=== PATIENT | female | born 1960 | race African-American/Black ===

== ENCOUNTER → 2017-06-05 | Outpatient (CLI) | payer OTHER ==
--- NOTE | 2017-06-05 11:51 | WOMENS IMAGING REPORT ---
EXAM DESCRIPTION: U/S ABDOMEN LIMITED COMPLETED DATE/TIME: 06/05/2017 10:33 am REASON FOR STUDY: CHRONIC VIRAL HEPATITIS; B18.2 B18.2 CHRONIC VIRAL HEPATITIS C F10.20 ALCOHOL DE PENDENCE, UNCOMPLICATED COMPARISON: None. TECHNIQUE: Dynamic and static grayscale images acquired of the abdomen and recorded on PACS. Additio nal selected color Doppler and spectral images recorded. LIMITATIONS: None. FINDINGS: PANCREAS: Normal. The tail was obscured gas. LIVER: 16.7 cm. Slightly increased echogenicity. LIVER VASCULATURE: Normal directional flow of the main portal vein and hepatic veins. GALLBLADDER: No stones. Normal wall thickness. No pericholecystic fluid. ULTRASOUND-DETECTED PAGAN'S SIGN: Negative. INTRAHEPATIC DUCTS AND COMMON DUCT: CBD and intrahepatic ducts normal caliber. No filling defects. INFERIOR VENA CAVA: Normal flow. AORTA: No aneurysm. The distal abdominal aorta was obscured by gas. RIGHT KIDNEY: Normal size, 11 x 4.2 x 4.6 cm. Normal echogenicity. No solid or suspicious masses. No hydronephrosis. No calcifications. PERITONEAL AND RIGHT PLEURAL SPACE: No ascites or effusions. OTHER: No other significant findings. IMPRESSION: There is mild fatty infiltration of the liver. TECHNICAL DOCUMENTATION: JOB ID: [id number] [employer]- All Rights Reserved
== END ==
LOC: WI 10:40
PROVIDERS: ATTEND Internal Medicine Gastroenterology
DX: B18.2 Chronic viral hepatitis C (principal); F10.20 Alcohol dependence, uncomplicated
CPT/HCPCS: 76705

== ENCOUNTER 2018-06-27 10:33 | Emergency (ER) | payer OTHER ==
[2018-06-27] MEDS ORDERED: ONDANSETRON HCL INJ/PF 4 MG/2 ML SDV IV ONE (11:31)
[2018-06-27] MEDS ORDERED: MORPHINE SULFATE 10 MG/ML INJ IV ONE (11:31)
--- NOTE | 2018-06-27 11:41 | ER Document Report ---
ED General - General Chief Complaint: Shoulder Pain Stated Complaint: LEFT SHOULDER PAIN Time Seen by Provider: 06/27/18 11:16 Mode of Arrival: Ambulatory Information source: Patient, Friend Notes: 58-year-old female with hypertension presents with complaints of left arm pain that started 1 week prior to arrival. Patient states that she fell asleep on her stomach with her arms over her head when she woke up the next morning with extreme aching throbbing pain that radiated down her left arm and into her left upper chest. Patient states the pain is constant, worse with movement. She denies any prior history of injury. She does state that she has been nauseous with this pain, diaphoretic. She denies any chest pain but admits to shortness of breath although she does have a history of COPD and currently still smokes. Patient has tried Motrin without relief. She denies any fever, chills, abdominal pain, back pain, dysuria, hematuria, cough. TRAVEL OUTSIDE OF THE [place] IN LAST 30 DAYS: No - HPI Onset: Last week Onset/Duration: Gradual, Persistent, Worse Quality of pain: Throbbing Severity: Moderate Associated symptoms: Nausea, Shortness of breath, Sweating Exacerbated by: Movement Relieved by: Denies Similar symptoms previously: No Recently seen / treated by doctor: No - Related Data Allergies/Adverse Reactions: No Known Allergies Allergy (Verified 06/27/18 10:38) Past Medical History - General Information source: Patient, [facility] Records - Social History Smoking Status: Current Every Day Smoker Cigarette use (# per day): Yes - 5 Smoking Education Provided: Yes - Smoking cessation counseling was provided for 4 minutes at the bedside Frequency of alcohol use: Occasional Drug Abuse: None Lives with: Family Family History: Reviewed & Not Pertinent Patient has suicidal ideation: No Patient has homicidal ideation: No - Past Medical History Cardiac Medical History: Reports: Hx Hypertension Denies: Hx Heart Attack Pulmonary Medical History: Denies: Hx Asthma Neurological Medical History: Denies: Hx Cerebrovascular Accident, Hx Seizures GI Medical History: Reports: Hx Ulcer. Denies: Hx Hepatitis, Hx Hiatal Hernia Infectious Medical History: Denies: Hx Hepatitis Past Surgical History: Reports: Hx Hysterectomy. Denies: Hx Mastectomy, Hx Open Heart Surgery, Hx Pacemaker - Immunizations Hx Diphtheria, Pertussis, Tetanus Vaccination: Yes Review of Systems - Review of Systems Constitutional: denies: Fever, Recent illness EENT: denies: Throat pain Cardiovascular: denies: Chest pain, Dizziness Respiratory: Short of breath. denies: Cough, Hurts to breathe Gastrointestinal: Nausea. denies: Vomiting Genitourinary: denies: Dysuria, Flank pain Female Genitourinary: No symptoms reported Musculoskeletal: Joint pain, Muscle stiffness. denies: Back pain, Joint swelling Skin: denies: Rash Hematologic/Lymphatic: denies: Swollen glands Neurological/Psychological: denies: Weakness, Headaches -: Yes All other systems reviewed and negative Physical Exam - Vital signs Vitals: Temp Pulse Resp BP Pulse Ox 98.6 F 87 20 165/87 H 98 06/27/18 10:45 06/27/18 10:45 06/27/18 10:45 06/27/18 10:45 06/27/18 10:45 Interpretation: Hypertensive - Notes Notes: PHYSICAL EXAMINATION: GENERAL: Well-appearing, well-nourished and in no acute distress. HEAD: Atraumatic, normocephalic. EYES: Pupils equal round and reactive to light, extraocular movements intact, conjunctiva are normal. ENT: Nares patent, oropharynx clear without exudates. Moist mucous membranes. NECK: Normal range of motion, supple without lymphadenopathy LUNGS: Breath sounds clear to auscultation bilaterally and equal. No wheezes rales or rhonchi. HEART: Regular rate and rhythm without murmurs ABDOMEN: Soft, nontender, nondistended abdomen. No guarding, no rebound. No masses appreciated. Female : deferred Musculoskeletal: Normal range of motion, no pitting or edema. No cyanosis. Right shoulder-sensation intact, no obvious deformity, full range of motion although painful. Radial pulse intact. No neuro deficits. NEUROLOGICAL: Cranial nerves grossly intact. Normal speech, normal gait. Normal sensory, motor exams PSYCH: Normal mood, normal affect. SKIN: Warm, Dry, normal turgor, no rashes or lesions noted. Course - Re-evaluation Re-evalutation: 06/27/18 20:23 Laboratory 06/27/18 06/27/18 06/27/18 11:38 11:38 11:38 WBC 5.7 RBC 3.74 Hgb 13.2 Hct 37.9 MCV 101 H MCH 35.1 H MCHC 34.7 RDW 13.1 Plt Count 88 L Seg Neutrophils % 37.2 L Lymphocytes % 50.8 H Monocytes % 10.1 Eosinophils % 1.2 Basophils % 0.7 Absolute Neutrophils 2.1 Absolute Lymphocytes 2.9 Absolute Monocytes 0.6 Absolute Eosinophils 0.1 Absolute Basophils 0.0 Sodium 141.0 Potassium 4.2 Chloride 106 Carbon Dioxide 25 Anion Gap 10 BUN 8 Creatinine 0.55 Est GFR ( Amer) > 60 Est GFR (Non-Af Amer) > 60 Glucose 119 H Calcium 9.1 Total Bilirubin 2.7 H Direct Bilirubin 0.7 H Neonat Total Bilirubin Not Reportable Neonat Direct Bilirubin Not Reportable Neonat Indirect Bili Not Reportable AST 222 H ALT 184 H Alkaline Phosphatase 281 H Troponin I < 0.012 Total Protein 9.6 H Albumin 4.2 Shoulder X-Ray 06/27/18 11:29 IMPRESSION: No acute fracture or malalignment. Chest X-Ray 06/27/18 11:30 IMPRESSION: NO ACUTE RADIOGRAPHIC FINDING IN THE CHEST. 06/27/18 20:23 58-year-old female with hypertension presents with complaints of left arm pain that started 1 week prior to arrival. Patient states that she fell asleep on her stomach with her arms over her head when she woke up the next morning with extreme aching throbbing pain that radiated down her left arm and into her left upper chest. Patient states the pain is constant, worse with movement. Upon arrival vital signs were reviewed. Patient does not appear toxic or dehydrated. She does appear to be uncomfortable. Upon arrival EKG was obtained which showed the patient to be in normal sinus rhythm at a rate of 83. No ST elevation, QTc prolongation. CBC is without leukocytosis or anemia. Troponin negative. No significant electrolyte abnormalities but patient was found to have elevated liver enzymes. She was questioned and denies any abdominal pain, history of alcohol abuse, history of IV drug use, hepatitis. I did inform her of her elevated lab values and recommended that she follow-up with her primary care physician and 2-3 weeks for repeat laboratory testing. X- rays of the left shoulder and chest were obtained and showed no acute process. Patient did receive [place] during her ED course. On reevaluation she reports great improvement of pain. Patient was evaluated and treated as appropriate for the patient's presenting symptoms and complaint, with consideration of any critical or life threatening conditions that may be associated with their obtained history and exam as noted above. All results were discussed with patient and she expresses understanding of follow-up with her primary care physician for repeat liver enzymes. Patient provided the opportunity to ask questions, and express concerns. Patient was educated on treatments based on their presumed diagnosis as noted above. At this time we will discharge the patient with return precautions and follow-up recommendations. Verbal discharge instructions given a the bedside. Medication warnings reviewed. HEART Score: History-0 ECG-0 Age-1 Risk Factors-1 Troponin Total: 2 If HEART score is = 3 AND both troponin measurements are normal, the 30 day risk of a major adverse cardiac event (all-cause mortality, myocardial infarction or need for coronary revascularization) is < 1% (Sensitivity 100%, NPV 100%). Chest pain in a patient without evidence of cardiac or other serious etiology on workup today. I discussed with patient that, based on their age, risk factors and emergency department testing today, the likelihood that their symptoms are related to a heart attack is very low (estimated risk of heart attack or over the next 30 days of less than 1%). The patient demonstrates decision making capacity and has verbalized an understanding of these risks to me. Based on this, the patient has chosen to follow-up as an outpatient. Usual chest pain return precautions reviewed. The patient states understanding and agreement with this plan. After careful consideration I feel that that patient can be safely discharged from the emergency department, they were advised to followup with a primary care physician in 2-3 days. Dictation on this chart was performed using voice recognition software and may result in unintended grammatical, spelling, syntax or errors. 06/27/18 20:24 06/27/18 20:24 - Vital Signs Vital signs: Temp Pulse Resp BP Pulse Ox 98.6 F 70 16 136/80 H 94 06/27/18 10:45 06/27/18 14:16 06/27/18 14:16 06/27/18 14:16 06/27/18 14:16 - Laboratory Result Diagrams: 06/27/18 11:38 06/27/18 11:38 Laboratory results interpreted by me: 06/27/18 06/27/18 11:38 11:38 MCV 101 H MCH 35.1 H Plt Count 88 L Seg Neutrophils % 37.2 L Lymphocytes % 50.8 H Glucose 119 H Total Bilirubin 2.7 H Direct Bilirubin 0.7 H AST 222 H ALT 184 H Alkaline Phosphatase 281 H Total Protein 9.6 H - Diagnostic Test Radiology reviewed: Image reviewed, Reports reviewed Discharge - Discharge Clinical Impression: Elevated liver enzymes, Elevated blood pressure reading Left shoulder strain Qualifiers: Encounter type: initial encounter Qualified Code(s): S46.912A - Strain of unspecified muscle, fascia and tendon at shoulder and upper arm level, left arm , initial encounter Condition: Good Disposition: HOME, SELF-CARE Instructions: Liver Function Abnormality ([facility]), Muscle Strain ([facility]), Exercise Program for the Shoulder ([facility]), Shoulder Injury ([facility]) Additional Instructions: Your liver function testing today was abnormal. I advise repeat blood work in 2 -3 weeks with your primary care physician to assess for resolution. Follow up with your [id number] hours for further care or return to the ED IMMEDIATELY if symptoms worsen or you have any concerns. If you cannot afford to follow up with your primary care physician a list of low cost clinics have been provided at the end of your discharge papers as well. Most prescribed medications have multiple side effects. The safest thing to do is when filling your prescription speak to your pharmacist regarding possible interactions with your normal home medications and over the counter medications such as Ibuprofen, Tylenol, Benadryl. If you experience any symptoms that cause you discomfort or concern you should discontinue the medication immediately and return to the emergency room or call your primary care physician. Prescriptions: Hydrocodone/Acetaminophen [[place] 5-325 mg Tablet] 1 tab PO Q6H #10 tablet Meloxicam [Mobic] 15 mg PO DAILY #15 tablet Forms: Elevated Blood Pressure Referrals: SEVERINO CARPENTER MD [ACTIVE STAFF] - Follow up as needed
[2018-06-27 12:32] LABS: ABSOLUTE EOSINOPHILS # (AUTO) 0.1 10^3/uL (0.0-0.6); ABSOLUTE LYMPHOCYTES (AUTO) 2.9 10^3/uL (0.5-4.7); ABSOLUTE MONOCYTES (AUTO) 0.6 10^3/uL (0.1-1.4); ABSOLUTE NEUT (AUTO) 2.1 10^3/uL (1.7-8.2); BASOPHILS % (AUTO) 0.7 % (0-2); EOSINOPHILS % (AUTO) 1.2 % (0-6); HEMATOCRIT 37.9 % (36.0-47.0); HEMOGLOBIN 13.2 g/dL (12.0-15.5); LYMPHOCYTES % (AUTO) 50.8 % (13-45); MEAN CORPUSCULAR HEMOGLOBIN 35.1 pg (27.0-33.4); MEAN CORPUSCULAR HGB CONC 34.7 g/dL (32.0-36.0); MEAN CORPUSCULAR VOLUME 101 fl (80-97); MONOCYTES % (AUTO) 10.1 % (3-13); RED BLOOD COUNT 3.74 10^6/uL (3.72-5.28); RED CELL DISTRIBUTION WIDTH 13.1 % (11.5-14.0); SEGMENTED NEUTROPHILS % (AUTO) 37.2 % (42-78); TOTAL CELLS COUNTED % (AUTO) 100 %; WHITE BLOOD COUNT 5.7 10^3/uL (4.0-10.5)
[2018-06-27 12:49] LABS: BLOOD UREA NITROGEN 8 mg/dL (7-20); CALCIUM 9.1 mg/dL (8.4-10.2); CARBON DIOXIDE 25 mmol/L (22-30); CHLORIDE 106 mmol/L (98-107); GLUCOSE 119 mg/dL (75-110); POTASSIUM 4.2 mmol/L (3.6-5.0)
[2018-06-27 12:50] LABS: ALANINE AMINOTRANSFERASE 184 U/L (9-52); ALBUMIN 4.2 g/dL (3.5-5.0); ALKALINE PHOSPHATASE 281 U/L (38-126); ANION GAP 10 (5-19); ASPARTATE AMINO TRANSFERASE 222 U/L (14-36); BILIRUBIN,DIRECT 0.7 mg/dL (0.0-0.4); BILIRUBIN,TOTAL 2.7 mg/dL (0.2-1.3); TOTAL PROTEIN 9.6 g/dL (6.3-8.2)
--- NOTE | 2018-06-27 12:59 | EKG REPORT ---
SEVERITY:- NORMAL ECG - SINUS RHYTHM : Confirmed by: Heber Tobias MD 27-Jun-2018 12:57:59
[2018-06-27 13:02] LABS: PLATELET COUNT 88 10^3/uL (150-450)
--- NOTE | 2018-06-27 13:56 | RADIOLOGY REPORT (SQ) ---
EXAM DESCRIPTION: SHOULDER LEFT 2 OR MORE VIEWS COMPLETED DATE/TIME: 06/27/2018 1:28 pm REASON FOR STUDY: pain sleeping wrong with the arm over head, woke up with left shoulder pain COMPARISON: None. NUMBER OF VIEWS: Three views. TECHNIQUE: Internal rotation, external rotation, and Y view images acquired of the left shoulder. LIMITATIONS: None. FINDINGS: MINERALIZATION: Normal. BONES: No acute fracture or dislocation. No worrisome bone lesions. JOINTS: No glenohumeral dislocation. No widening at the acromioclavicular joint. VISUALIZED LUNGS AND RIBS: No pneumothorax. No rib fracture. SOFT TISSUES: No radiopaque foreign body. OTHER: No other significant finding. IMPRESSION: No acute fracture or malalignment. TECHNICAL DOCUMENTATION: JOB ID: [id number] [employer]- All Rights Reserved Reading location - IP/workstation name: [email or web address]
--- NOTE | 2018-06-27 13:58 | RADIOLOGY REPORT (SQ) ---
EXAM DESCRIPTION: CHEST 2 VIEWS COMPLETED DATE/TIME: 06/27/2018 1:28 pm REASON FOR STUDY: left upper chest pain COMPARISON: AP chest 08/27/2008 EXAM PARAMETERS: NUMBER OF VIEWS: two views TECHNIQUE: Digital Frontal and Lateral radiographic views of the chest acquired. RADIATION DOSE: NA LIMITATIONS: none FINDINGS: LUNGS AND PLEURA: No opacities, masses or pneumothorax. No pleural effusion. MEDIASTINUM AND HILAR STRUCTURES: No masses or contour abnormalities. HEART AND VASCULAR STRUCTURES: Heart normal size. No evidence for failure. BONES: No acute findings. HARDWARE: None in the chest. OTHER: No other significant finding. IMPRESSION: NO ACUTE RADIOGRAPHIC FINDING IN THE CHEST. TECHNICAL DOCUMENTATION: JOB ID: [id number] [employer]- All Rights Reserved Reading location - IP/workstation name: [email or web address]
[2018-06-27 14:16] VITALS: BP 136/80
== END 2018-06-27 14:16 | disposition home or self-care (01) ==
LOC: ER 10:33
DX: S46.912A Strain of unspecified muscle, fascia and tendon at shoulder and upper arm level, left arm, initial encounter (principal); R74.8 Abnormal levels of other serum enzymes; X58.XXXA Exposure to other specified factors, initial encounter; R11.0 Nausea; R06.02 Shortness of breath; F17.210 Nicotine dependence, cigarettes, uncomplicated; Z90.710 Acquired absence of both cervix and uterus
CPT/HCPCS: 93005; 99406; 99284; 96374; 96375; 36415; 85025; 80053; 84484; 71046; 73030; 93010; J2270; J2405

== ENCOUNTER 2019-05-17 21:48 | Emergency (ER) | payer OTHER ==
[2019-05-17] MEDS ORDERED: ACETAMINOPHEN 325 MG TABLET PO ONE (23:48)
--- NOTE | 2019-05-17 23:49 | ER Document Report ---
ED Medical Screen (RME) - General Chief Complaint: Knee Pain Stated Complaint: KNEE PAIN Time Seen by Provider: 05/17/19 23:48 Notes: Patient is a 59-year-old female presents to the emergency department for chronic left knee pain. Patient states her left knee hurts "more than it usually does." Patient is denying any injury or trauma to the left knee. States generalized pain upon movement and palpation of left anterior knee. Patient's denying any fevers or redness to the left knee. Does state it is swollen. Patient's denying any calf pain bilaterally. GENERAL: Alert, interacts well. No acute distress. EXTREMITIES: Moves all 4 extremities spontaneously. normal radial and dorsalis pedis pulses bilaterally. No cyanosis. Generalized pain swelling noted left anterior knee. I have greeted and performed a rapid initial assessment of this patient. A comprehensive ED assessment and evaluation of the patient, analysis of test results and completion of the medical decision making process will be conducted by additional ED providers. I have specifically instructed the patient or family members with the patient to immediately return to any nursing staff should anything change in the patient's condition or with their chief complaint. This medical record was dictated with voice recognizing software. There may be grammatical, syntax errors that are unintended. TRAVEL OUTSIDE OF THE [place] IN LAST 30 DAYS: No - Related Data Allergies/Adverse Reactions: No Known Allergies Allergy (Verified 06/27/18 10:38) Past Medical History - Past Medical History Cardiac Medical History: Reports: Hx Hypertension Denies: Hx Heart Attack Pulmonary Medical History: Denies: Hx Asthma Neurological Medical History: Denies: Hx Cerebrovascular Accident, Hx Seizures Renal/ Medical History: Denies: Hx Peritoneal Dialysis GI Medical History: Reports: Hx Ulcer. Denies: Hx Hepatitis, Hx Hiatal Hernia Infectious Medical History: Denies: Hx Hepatitis Past Surgical History: Reports: Hx Hysterectomy. Denies: Hx Mastectomy, Hx Open Heart Surgery, Hx Pacemaker - Immunizations Hx Diphtheria, Pertussis, Tetanus Vaccination: Yes Physical Exam - Vital signs Vitals: Temp Pulse Resp BP Pulse Ox 98.1 F 80 16 134/74 H 100 05/17/19 22:59 05/17/19 22:59 05/17/19 22:59 05/17/19 22:59 05/17/19 22:59 Course - Vital Signs Vital signs: Temp Pulse Resp BP Pulse Ox 98.1 F 80 16 134/74 H 100 05/17/19 22:59 05/17/19 22:59 05/17/19 22:59 05/17/19 22:59 05/17/19 22:59
--- NOTE | 2019-05-18 00:30 | RADIOLOGY REPORT (SQ) ---
4 VIEWS OF LEFT KNEE EXAM DATE: 05/17/2019 11:48 PM CDT HISTORY: Knee pain. COMPARISON: None. FINDINGS: No acute fracture or dislocation is seen. The joint spaces are preserved. The soft tissues are unremarkable. No knee joint effusion. IMPRESSION: No acute fracture or malalignment.
--- NOTE | 2019-05-18 02:12 | ER Document Report ---
HPI - HPI Time Seen by Provider: 05/17/19 23:48 Pain Level: 4 Context: Patient is a 59-year-old female that comes emergency department for chief complaint of left knee pain. She states this is been bothering her for a while but she has noticed it much more over the past several days with it frequently popping and hurting more than usual. She denies falling on the knee, surgery, fever/chills, or any other locations of pain. Past medical history includes hypertension, alcoholism, peptic ulcers. Family is at bedside. - REPRODUCTIVE Reproductive: DENIES: : - MUSCULOSKELETAL Musculoskeletal: REPORTS: Extremity pain Past Medical History - General Information source: Patient - Social History Smoking Status: Unknown if Ever Smoked Chew tobacco use (# tins/day): No Frequency of alcohol use: Heavy Drug Abuse: None Lives with: Family Family History: Reviewed & Not Pertinent Patient has suicidal ideation: No Patient has homicidal ideation: No - Past Medical History Cardiac Medical History: Reports: Hx Hypertension Denies: Hx Heart Attack Pulmonary Medical History: Denies: Hx Asthma Neurological Medical History: Denies: Hx Cerebrovascular Accident, Hx Seizures Renal/ Medical History: Denies: Hx Peritoneal Dialysis GI Medical History: Reports: Hx Ulcer. Denies: Hx Hepatitis, Hx Hiatal Hernia Infectious Medical History: Denies: Hx Hepatitis Past Surgical History: Reports: Hx Hysterectomy. Denies: Hx Mastectomy, Hx Open Heart Surgery, Hx Pacemaker - Immunizations Hx Diphtheria, Pertussis, Tetanus Vaccination: Yes Vertical Provider Document - CONSTITUTIONAL General Appearance: WD/WN, No Apparent Distress - INFECTION CONTROL TRAVEL OUTSIDE OF THE [place] IN LAST 30 DAYS: No - HEENT HEENT: Atraumatic, Normal ENT Exam, Normocephalic - NECK Neck: Normal Inspection - RESPIRATORY Respiratory: Breath Sounds Normal, No Respiratory Distress - CARDIOVASCULAR Cardiovascular: Regular Rate, Regular Rhythm - GI/ABDOMEN Gastrointestinal: Abdomen Soft, Abdomen Non-Tender - REPRODUCTIVE Female Genitalia: Normal Inspection - BACK Back: Normal Inspection - MUSCULOSKELETAL/EXTREMETIES Musculoskeletal/Extremeties: MAEW, FROM, Tender - Patient complains of palpation over the left knee generally, there is no abdominal swelling, erythema, heat to the area. Range of motion is intact. Positive Saúl sign with popping. Hip, ankle, foot exam normal, normal distal neurovascular exam, normal lower extremity exam otherwise - NEURO Level of Consciousness: Awake, Alert, Appropriate Motor/Sensory: No Motor Deficit, No Sensory Deficit - DERM Integumentary: Warm, Dry, No Rash Course - Re-evaluation Re-evalutation: X-ray is negative. Exam shows positive Saúl sign, patient is popping with walking as well, suspect she has a meniscus tear. No signs of septic joint, full range of motion intact, normal lower extremity exam otherwise. Patient complains with walking on the knee. Knee immobilizer placed, discussed care, orthopedic follow-up, return precautions. Giving famotidine because of history of ulcers, low dosing the anti-inflammatory and discussed precautions in regards to this. Discussed return precautions. Patient and family state understanding and agreement. - Vital Signs Vital signs: Temp Pulse Resp BP Pulse Ox 98.1 F 80 16 134/74 H 100 05/17/19 22:59 05/17/19 22:59 05/17/19 22:59 05/17/19 22:59 05/17/19 22:59 Procedures - Immobilization Left knee Pre-Proc Neuro Vasc Exam: Normal Immobilizer type: Knee immobilizer Performed by: PCT Post-Proc Neuro Vasc Exam: Normal Alignment checked and good: Yes Discharge - Discharge Clinical Impression: Left knee pain Qualifiers: Chronicity: acute Qualified Code(s): M25.562 - Pain in left knee Condition: Stable Disposition: HOME, SELF-CARE Additional Instructions: Your x-ray does not show any concerning findings. Your evaluation is most consistent with a tear of the meniscus in the left knee. I recommend the knee immobilizer, ice 3-4 times a day for 10 to 15 minutes, take the anti- inflammatory (make sure you take the famotidine at the same time to avoid peptic ulcer flareup), and rest/elevate your leg whenever possible. If symptoms continue follow-up with the orthopedic referral listed. Return if you worsen including severe worsening swelling, developing redness or fever, or any other concerning symptoms. Prescriptions: Naproxen 375 mg PO BID PRN #14 tablet.dr MURDOCK Reason: Famotidine [Pepcid 20 mg Tablet] 20 mg PO BID #14 tablet Referrals: VALENTINO DAVIS MD [ACTIVE STAFF] - Follow up in 1 week
[2019-05-18] MEDS ORDERED: NAPROXEN 250 MG TABLET PO ONE (02:56)
[2019-05-18] MEDS ORDERED: FAMOTIDINE 20 MG TABLET PO ONE (02:56)
[2019-05-18 03:08] VITALS: BP 139/86
== END 2019-05-18 03:08 | disposition home or self-care (01) ==
LOC: ER 21:48
DX: M25.562 Pain in left knee (principal); I10 Essential (primary) hypertension
CPT/HCPCS: 99283; 73564; L1830